=== PATIENT | female | born 1965 | race Two or more races ===

== ENCOUNTER 2021-04-28 20:24 | Emergency (ER) | payer OTHER ==
[~2021-04-28] VITALS: Ht 157.5 cm; Wt 72.6 kg
[2021-04-28] MEDS ORDERED: LOSARTAN POTASS25 MG PO (23:30)
[2021-04-28] MEDS ORDERED: VISTARIL50 MG PO (23:30)
== END 2021-04-28 23:38 ==
LOC: ER 20:24
DX: G44.209 Tension-type headache, unspecified, not intractable (principal); I10 Essential (primary) hypertension